=== PATIENT | male | born 1990 | race Caucasian/White ===

== ENCOUNTER 2022-03-09 15:27 | Emergency (ER) | payer BC ==
[~2022-03-09] VITALS: Ht 185.4 cm; Wt 106.6 kg
[2022-03-09 15:35] VITALS: BP_SYST 129
--- NOTE | 2022-03-09 15:35 | NUR ---
Patient to ER bed 4 to gown for evaluation. Side rails up. Report given to rn. katie .
--- NOTE | 2022-03-09 15:38 | NUR ---
ER at bedside examining patient.
[2022-03-09 16:32] LABS: BASOPHILS % (AUTO) 0.4 % (0.0-2.0); EOSINOPHILS # (AUTO) 0.2 K/uL (0.0-0.4); EOSINOPHILS % (AUTO) 2.6 % (0.0-4.0); HEMATOCRIT 40.7 % (36-54); HEMOGLOBIN 14.5 g/dL (14.0-18.0); LYMPHOCYTES % (AUTO) 29.5 % (20.5-51.5); MEAN CORPUSCULAR HEMOGLOBIN 29 pg (27-31); MEAN CORPUSCULAR HGB CONC 36 % (32-36); MEAN CORPUSCULAR VOLUME 81 fL (79.0-98.0); MONOCYTES # (AUTO) 0.6 K/uL (0.0-1.0); MONOCYTES % (AUTO) 9.3 % (1.7-9.3); NEUTROPHILS # (AUTO) 3.9 K/uL (1.8-7.7); NEUTROPHILS % (AUTO) 58.2 % (40.0-70.0); PLATELET COUNT (AUTO) 244 K/uL (130-430); RED BLOOD CELL COUNT(AUTO) 5.05 MIL/uL (4.2-6.2); WHITE BLOOD COUNT (AUTO) 6.7 K/uL (4.8-10.8)
[2022-03-09 16:38] LABS: ANION GAP 7 (5-15); CALCIUM 9.5 mg/dL (8.4-11.0); CHLORIDE 101 mmol/L (98-107); GLUCOSE 102 mg/dL (70-99); UREA NITROGEN, BLOOD 17 mg/dL (8-21)
[2022-03-09 16:44] LABS: GFR AFRICAN AMERICAN 90 mL/min (>90)
[2022-03-09 16:47] LABS: ALANINE AMINOTRANSFERASE 34 U/L (12-78); ALBUMIN 4.1 g/dL (3.4-4.8); ASPARTATE AMINOTRANSFERASE 18 U/L (10-37); TOTAL BILIRUBIN 0.2 mg/dL (0.0-1.0)
[2022-03-09] MEDS ORDERED: OMEP20CA15 PO (17:05)
[2022-03-09 17:43] VITALS: BP_SYST 132
--- NOTE | 2022-03-09 17:44 | NUR ---
tad ordered d/c instructions for pt. pt a&ox4, no distress noted. pt ambulated out of the er with aci on hand.
== END 2022-03-09 17:44 | disposition home or self-care (01) ==
LOC: SED 15:27
DX: K20.90 Esophagitis, unspecified without bleeding (principal); R07.89 Other chest pain; Z79.899 Other long term (current) drug therapy
CPT/HCPCS: 36415; 71045; 80053; 84484; 85025; 93005; 99285